=== PATIENT | female | born 1970 | race Hispanic/Latino ===

== ENCOUNTER 2016-11-17 07:16 | Day surgery (SDC) | payer BC ==
[2016-11-16 09:02] VITALS: BMI 20.1
[2016-11-17] MEDS ORDERED: methylPREDNISolone Depo 80 mg/ml Inj ONE (07:26)
[2016-11-17] MEDS ORDERED: Bupivacaine HCl 0.25% PF (30 ml) Inj ONE (07:26)
[2016-11-17] MEDS ORDERED: Lidocaine 1% Inj (20ml) ONE (07:27)
[2016-11-17] MEDS ORDERED: Iohexol 300 10 ML ONE (07:27)
[2016-11-17] MEDS ORDERED: Propofol 10 mg/ml Inj (20 ML) ONE (07:40)
[2016-11-17] MEDS ORDERED: Midazolam 2 MG/2 ML VIAL ONE (07:41)
[2016-11-17] MEDS ORDERED: Lidocaine Hydrochloride 5 ML INJ ONE (07:41)
[2016-11-17 07:49] VITALS: RESP 20
[2016-11-17] MEDS ORDERED: Lactated Ringer's 1,000 ML IV ONE (08:15)
[2016-11-17] MEDS ORDERED: Bupivacaine 0.5% Inj(30mL) ONE (09:05)
[2016-11-17] MEDS ORDERED: Lidocaine 2% Inj (20ml) ONE (09:05)
[2016-11-17] MEDS ORDERED: Lidocaine 2% Inj (20ml) IJ ONE (09:30)
[2016-11-17] MEDS ORDERED: methylPREDNISolone Depo 80 mg/ml Inj IM ONE (09:30)
[2016-11-17] MEDS ORDERED: Iohexol 300 10 ML IJ ONE (09:30)
[2016-11-17] MEDS ORDERED: Bupivacaine 0.5% 50 ML IJ ONE (09:30)
[2016-11-17] MEDS ORDERED: HYDROmorphone 0.5 mg/0.5 ml ISec IVP PRN (09:42)
[2016-11-17] MEDS ORDERED: Lactated Ringer's 1,000 ML IV SCH (09:45)
--- NOTE | 2016-11-17 09:45 | PCM.SURG1 ---
Surgeon's Initial Post Op Note - Surgeon's Notes Surgeon: Misty Cook MD Price Accuracy Supervisor: Zackery Collado PA-C Type of Anesthesia: IV Sedation Pre-Operative Diagnosis: B/L Hip OA/Labral Tear Operative Findings: See op report Post-Operative Diagnosis: Same as pre-op dx Operation Performed: B/L Hip Injections Specimen/Specimens Removed: None Estimated Blood Loss: EBL {In ML}: 0 Date of Surgery/Procedure: 11/17/16 Time of Surgery/Procedure: 09:00 (am)
--- NOTE | 2016-11-17 10:05 | OP ---
PROCEDURE DATE: 11/17/2016 ATTENDING PHYSICIAN: Joey Jay MD. BILINGUAL HR GENERALIST Zackery Collado PA-C. PREOPERATIVE DIAGNOSIS: Bilateral hip osteoarthritis. POSTOPERATIVE DIAGNOSIS: Bilateral hip osteoarthritis. PROCEDURE: 1. Right hip fluoroscopic-guided cortisone injection. 2. Left hip fluoroscopic-guided cortisone injection. 3. Fluoro use up to 1 hour. ANESTHESIA TYPE: General sedation. ESTIMATED BLOOD LOSS: Minimal. COMPLICATIONS: None. HISTORY: The patient is a 46-year-old female with bilateral hip pain. X-ray had shown osteoarthriti s. I had presented the patient different treatment options of physical therapy, cortisone injection, hip replacement at that point. The patient wanted to proceed with a cortisone injection. I reviewe d the risks and benefits of the procedure with the patient. The risks include infection, bleeding, n erve/vessel damage, continued pain, need for further procedures among others. The patient fully unde rstood the risks and the benefits and opted to proceed. PROCEDURE: On the day of the injection, the patient was admitted to preop holding area. A lateralit y sheet was completed, confirming the patient's both hips as the correct operative site. Both hips w ere marked and informed consent was signed from the patient. The patient was brought into the operat ing room table. No antibiotics were given. She was given sedation and both hips were draped and pre pped in standard sterile manner. Under direct fluoroscopic guidance, first we proceeded with left hi p injection. An 18-gauge spinal needle was used and the positioning was confirmed using the radiogra phs. We had injected opaque dye to confirm the intraarticular placement of the needle and under dire ct visual guidance, 80 mg of Depo-Medrol plus 2 mL of 0.5% Marcaine and 2 mL of 2% lidocaine was inje cted into the left hip joint. Afterwards, bandage was applied. Then, we turned our attention to the right hip. Once again, under fluoroscopic guidance, the needle was placed into the right hip joint. The opaque dye was placed, confirming the intraarticular positioning of the needle and under direct radiographic guidance, 80 mg of Depo-Medrol plus 2 mL of 0.5% Marcaine and 2 mL of 2% lidocaine was injected into the right hip. The skin was cleaned and a bandage was applied. Afterwards, the cassie sosa was transferred to the stretcher, taken to recovery room. She was weightbearing as tolerated. She was provided with the appropriate instructions. There were no complications of the procedure. Zackery Collado is a certified physician housekeeper and laundry assistant who was present for the entirety of the case. Her participation was crucial in patient positioning, holding, manual traction and successful completion of this procedure. Joey Jay MD cc: [id number] TT: 11/17/2016 10:04:57 tn
--- NOTE | 2016-11-17 10:47 | RAD ---
PROCEDURE: Fluoroscopy up to 1 hr. HISTORY: BILAT HIP INJECT COMPARISON: None TECHNIQUE: Standard protocol for this study/examination. FINDINGS: Total fluoroscopic time (continuous mode) utilized during the procedure: 34.3 seconds. IMPRESSION: Less than 1 hr fluoroscopic time utilized during performance of the procedure.
[2016-11-17] MEDS ORDERED: Oxycodone/Acetaminophen 5/325 mg Tab PO PRN (11:00)
--- NOTE | 2016-11-17 11:12 | CP.PCM.DIS ---
Provider - Provider Attending physician: Joey Jay MD Primary care physician: Landon Medley MD Time Spent in preparation of Discharge (in minutes): 30 Diagnosis - Discharge Diagnosis (1) Bilateral hip joint arthritis Status: Acute Priority: Medium Discharge Plan - Follow Up Plan Condition: GOOD Disposition: HOME/ ROUTINE Patient education suggested?: Yes Additional Instructions: 46 yo female with bilateral hip pain,osteoarthritis and labral tear,post op bilateral hip injection,pain controlled with PO pain meds,linda PO,given post op instructions,pain script and follow up appt date,NVI BLE,stable for d/c home. Referrals: [id number] [Other]
[2016-11-17 11:37] VITALS: BP 115/73; PULSE 73; TEMP 98
[2016-11-17 14:24] VITALS: O2SAT 98
== END 2016-11-17 12:40 | disposition home or self-care (01) ==
LOC: H.OPSURG 07:16
PROVIDERS: ATTEND Orthopaedic Surgery
DX: M16.0 Bilateral primary osteoarthritis of hip (principal); J45.909 Unspecified asthma, uncomplicated; E03.9 Hypothyroidism, unspecified; K21.9 Gastro-esophageal reflux disease without esophagitis
CPT/HCPCS: 20611; J1040; J2250; J2704; J2765; J3010; J7030; J7120; Q9967

== ENCOUNTER 2018-10-12 14:36 | Emergency (ER) | payer BC ==
[2018-10-12 14:36] VITALS: BMI 20.1
[2018-10-12 14:43] VITALS: O2SAT 100
--- NOTE | 2018-10-12 15:25 | ED PDOC ---
HPI: Neurologic - General Time Seen by Provider: 10/12/18 14:48 Chief Complaint (Nursing): Weakness/Neurological Deficit Chief Complaint (Provider): Difficulty Focusing; Tingling Source: patient, family () Exam Limitations: no limitations - History of Present Illness Timing/Duration: 1 hour Allergies/Adverse Reactions: Allergies Penicillins Allergy (Verified 10/12/18 14:37) RASH Home Medications: Ambulatory Orders Albuterol HFA [Ventolin HFA 90 mcg/actuation (8 g)] 2 puff IH [id number] PRN #1 puff 04/13/14 oxyCODONE/Acetaminophen [Percocet 5/325 mg Tab] 5 - 325 mg PO Q4 PRN 11/17/16 Additional Complaint(s): 48 year old female presents to the ED via EMS for evaluation of difficulty concentrating associated with tingling throughout her body and face approximately one hour prior to arrival. 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 Notes the tingling has since resolved. at bedside confirms that patient seemed upset and told him she had a hard time concentrating, but did not notice any obvious weakness or change in speech. While answering questions during HPI process, patient has clear difficulty concentrating on what she wants to say. Of note, patient does admit to having anxiety and thyroid problems, and was re cently diagnosed with decreased hearing in her left ear. PMD: Edilma Centeno Past Medical History Reviewed: Historical Data, Nursing Documentation, Vital Signs Vital Signs: Last Vital Signs Temp 98.3 F 10/12/18 14:37 Pulse 91 H 10/12/18 14:37 Resp 16 10/12/18 14:37 BP 164/86 H 10/12/18 14:37 Pulse Ox 100 10/12/18 14:37 - Medical History PMH: Anxiety, Asthma, Hypothyroidism Denies: Chronic Kidney Disease Other PMH: decreased hearing to left ear - Surgical History Surgical History: No Surg Hx - Family History Family History: States: Unknown Family Hx - Social History Current smoker - smoking cessation education provided: No Alcohol: None Drugs: Denies - Home Medications Home Medications: Ambulatory Orders Medication Instructions Recorded Albuterol HFA [Ventolin HFA 90 2 puff IH [id number] PRN #1 puff 04/13/14 mcg/actuation (8 g)] oxyCODONE/Acetaminophen [Percocet 5 - 325 mg PO Q4 PRN 11/17/16 5/325 mg Tab] - Allergies Allergies/Adverse Reactions: Allergies Allergy/AdvReac Type Severity Reaction Status Date / Time Penicillins Allergy RASH Verified 10/12/18 14:37 Review of Systems ROS Statement: Except As Marked, All Systems Reviewed And Found Negative Neurological: Positive for: Other (tingling to body and face; difficulty focusing / concentrating). Negative for: Change in Speech Physical Exam - Reviewed Nursing Documentation Reviewed: Yes Vital Signs Reviewed: Yes - Physical Exam Appears: Positive for: Well, Non-toxic, No Acute Distress Head Exam: Positive for: ATRAUMATIC, NORMAL INSPECTION, NORMOCEPHALIC Skin: Positive for: Normal Color, Warm. Negative for: Rash Eye Exam: Positive for: EOMI, Normal appearance, PERRL ENT: Positive for: Normal ENT Inspection Neck: Positive for: Normal, Painless ROM, Supple Cardiovascular/Chest: Positive for: Regular Rate, Rhythm Respiratory: Positive for: Normal Breath Sounds. Negative for: Respiratory Distress Gastrointestinal/Abdominal: Positive for: Normal Exam, Soft. Negative for: Tenderness Back: Positive for: Normal Inspection Extremity: Positive for: Normal ROM (all extremities) Neurologic/Psych: Positive for: Alert, regulatory affairs analyst II-XII (grossly intact), Oriented (x3), Mood/Affect (calm but tearful), Cerebellar Tests (normal), Gait (steady, unassisted). Negative for: Motor/Sensory Deficits, Aphasia, Facial Droop, Other (dysarthria) - Laboratory Results Result Diagrams: 10/12/18 15:50 10/12/18 15:50 - ECG ECG: Positive for: Interpreted By Me, Viewed By Me ECG Rhythm: Positive for: Normal QRS, Normal ST Segment, Sinus Rhythm (normal at 91bpm). Negative for: ST/T Changes O2 Sat by Pulse Oximetry: 100 (RA) Pulse Ox Interpretation: Normal - Progress Re-evaluation Time: 17:38 Condition: Re-examined, Improved Medical Decision Making Medical Decision Making: Time: 1501 Initial Impression: paresthesias, confusion DDx includes: panic attack, TIA Initial Plan: --CT head without contrast --EKG --Alcohol serum --BMP --Drug screen --Trop I --U-preg --U-dip --CBC with differential --Accucheck --Xanax 0.5mg PO 1609 CT FINDINGS: HEMORRHAGE: No intracranial hemorrhage. BRAIN: Normal patton-white matter differentiation and density are appreciated throughout the cerebrum and cerebellum with the brainstem appearing unremarkable as well. There is no mass effect. There is no suspicious extra-axial fluid collection and the midline brain anatomy appears diffusely unremarkable. VENTRICLES: Unremarkable. No hydrocephalus. CALVARIUM: Unremarkable. PARANASAL SINUSES: Unremarkable as visualized. No significant inflammatory changes. MASTOID AIR CELLS: Unremarkable as visualized. No inflammatory changes. OTHER FINDINGS: None. IMPRESSION: Unremarkable unenhanced head CT. ------- Scribe Attestation: Documented by Nikki Thomas, acting as a scribe for Rossana Malcolm MD. Provider Scribe Attestation: All medical record entries made by the Scribe were at my direction and personally dictated by me. I have reviewed the chart and agree that the record accurately reflects my personal performance of the history, physical exam, medical decision making, and the department course for this patient. I have also personally directed, reviewed, and agree with the discharge instructions and dis position. Disposition - Clinical Impression Clinical Impression: Anxiety, Confusion, Benzocaine adverse reaction - Patient ED Disposition Is Patient to be Admitted: No Doctor Will See Patient In The: Office Counseled Patient/Family Regarding: Studies Performed, Diagnosis, Need For Followup - Disposition Referrals: [facility] [Outside] Disposition: Routine/Home Disposition Time: 17:39 Condition: GOOD Additional Instructions: CHAVEZ GAMBOA, thank you for letting us take care of you today. Your provider was Rossana Malcolm MD and you were treated for PANIC. The emergency medical care you received today was directed at your acute symptoms. If you were prescribed any medication, please fill it and take as directed. It may take several days for your symptoms to resolve. Return to the Emergency Department if your symptoms worsen, do not improve, or if you have any other problems. Please contact your doctor or call one of the physicians/clinics you have been referred to that are listed on the Patient Visit Information form that is included in your discharge packet. Bring any paperwork you were given at discharge with you along with any medications you are taking to your follow up visit. Our treatment cannot replace ongoing medical care by a primary care provider outside of the emergency department. Thank you for allowing the [facility] team to be part of your care today. If you had an X-Ray or CT scan: A Radiologist will review the ED reading if any change in treatment is needed we will contact you. If you had a blood, urine, or wound culture: It will take several days for the results, if any change in treatment is needed we will contact you. If you had an STI test: It will take 48 hours for the results. Please call after 1 week if you have not heard back. Instructions: Anxiety, Adult (DC)
[2018-10-12 16:11] LABS: BASO # 0.1 K/uL (0.0-0.2); BASO % 0.9 % (0.0-2.0); EOS # 0.1 K/uL (0.0-0.7); EOS % 1.1 % (0.0-4.0); HEMOGLOBIN 12.2 g/dL (12.0-16.0); LYMPH # 1.5 K/uL (1.0-4.3); MEAN CELL VOLUME 86.7 fl (81.0-99.0); MEAN CORPUSCULAR HEMOGLOBIN 29.4 pg (27.0-31.0); MEAN CORPUSCULAR HGB CONC 33.9 g/dL (33.0-37.0); MONO # 0.4 K/uL (0.0-0.8); MONO % 4.9 % (0.0-10.0); NEUT # 6.6 K/uL (1.8-7.0); NEUT % 76.1 % (50.0-75.0); RBC 4.15 Mil/uL (3.80-5.20); RED CELL DISTRIBUTION WIDTH 14.8 % (11.5-14.5); WHITE BLOOD COUNT 8.7 K/uL (4.8-10.8)
--- NOTE | 2018-10-12 16:13 | CT ---
Date of service: 10/12/2018 PROCEDURE: CT HEAD WITHOUT CONTRAST. HISTORY: dizziness COMPARISON: None available. TECHNIQUE: Axial computed tomography images were obtained through the head/brain without intravenous contrast. Radiation dose: Total exam DLP = 691.72 mGy-cm. This CT exam was performed using one or more of the following dose reduction techniques: Automated exposure control, adjustment of the mA and/or kV according to patient size, and/or use of iterative reconstruction technique. FINDINGS: HEMORRHAGE: No intracranial hemorrhage. BRAIN: Normal patton-white matter differentiation and density are appreciated throughout the cerebrum and cerebellum with the brainstem appearing unremarkable as well. There is no mass effect. There is no suspicious extra-axial fluid collection and the midline brain anatomy appears diffusely unremarkable. VENTRICLES: Unremarkable. No hydrocephalus. CALVARIUM: Unremarkable. PARANASAL SINUSES: Unremarkable as visualized. No significant inflammatory changes. MASTOID AIR CELLS: Unremarkable as visualized. No inflammatory changes. OTHER FINDINGS: None. IMPRESSION: Unremarkable unenhanced head CT.
[2018-10-12 16:21] LABS: BLOOD UREA NITROGEN 15 mg/dl (7-17); CALCIUM 9.8 mg/dL (8.4-10.2); GFR NON-AFRICAN AMERICAN > 60
[2018-10-12 17:57] VITALS: BP 154/118; PULSE 124; RESP 18; TEMP 98
--- NOTE | 2018-10-13 19:09 | CARD ---
APPROVED REPORT Date of service: 10/12/2018 EKG Measurement Heart [id number] <Conclusion> Normal sinus rhythm Possible Left atrial enlargement Borderline ECG
== END 2018-10-12 17:50 | disposition home or self-care (01) ==
LOC: H.ER 14:36
DX: F41.9 Anxiety disorder, unspecified (principal); R41.0 Disorientation, unspecified; T88.7XXA Unspecified adverse effect of drug or medicament, initial encounter; E03.9 Hypothyroidism, unspecified; Z88.0 Allergy status to penicillin
CPT/HCPCS: 70450; 80048; 81025; 82948; 84484; 85025; 93005; 99285; G0480